=== PATIENT | male | born 1970 | race Caucasian/White ===

== ENCOUNTER → 2016-11-13 12:56 | Outpatient (CLI) | payer OTHER | END | disposition home or self-care (01) | LOC: D.US 12:56 | DX: N43.3 Hydrocele, unspecified (principal) ==

== ENCOUNTER 2020-03-14 00:34 | Observation (INO) | payer OTHER ==
[~2020-03-14] VITALS: Ht 175.3 cm; Wt 99.1 kg
[2020-03-14] MEDS ORDERED: HCTZ25 MG PO (00:51)
[2020-03-14] MEDS ORDERED: ULTRAM50 MG PO (00:52)
[2020-03-14] MEDS ORDERED: COLACE100 MG PO (00:52)
[2020-03-14] MEDS ORDERED: COZAAR50 MG PO (00:52)
[2020-03-14 01:54] LABS: BASOPHILS 0.3 % (0-2); EOSINOPHILS 2.3 % (0-7); HEMATOCRIT 45.3 % (42.0-54.0); HEMOGLOBIN 14.8 g/dL (13.5-17.5); IMMATURE GRANULOCYTES 0.1 % (0-5); MCH 26.4 pg (26.0-34.0); MCHC 32.7 g/dL (31.0-37.0); MCV 80.7 fL (80.0-100.0); MEAN PLATELET VOLUME 9.1 fL (7.4-10.4); MONOCYTES 12.1 % (2-11); NEUTROPHILS 45.2 % (40-80); PLATELET COUNT 336 10x3/uL (130-400); RBC 5.61 10x6/uL (4.20-6.10); RDW 13.9 % (11.5-14.5)
[2020-03-14 02:02] LABS: CALC OSMOLALITY 269 mosm/kg (275-300); CALCIUM 8.9 mg/dL (8.5-10.1); CARBON DIOXIDE 29.2 mmol/L (21.0-32.0); CHLORIDE - SERUM 98 mmol/L (98-107); CREATININE - SERUM 1.4 mg/dL (0.6-1.3); GLUCOSE 112 mg/dL (74-106); POTASSIUM - SERUM 3.7 mmol/L (3.5-5.1); SODIUM 134 mmol/L (136-145); UREA NITROGEN 14 mg/dL (7-18); eGFR NON AFRICAN AMERICAN 57 mL/min (90-120)
[2020-03-14 02:07] LABS: APTT 31.2 SECONDS (22.8-39.4); INR 0.99 (0.85-1.17); PROTIME 13.1 SECONDS (11.6-15.0)
[2020-03-14 02:16] LABS: ALBUMIN 3.8 g/dL (3.4-5.0); ALKALINE PHOSPHATASE 61 U/L (30-120); ALT (SGPT) 38 U/L (10-68); BILIRUBIN - TOTAL 0.51 mg/dL (0.2-1.3); CKMB 0.9 U/L (0.0-3.6); CREATINE KINASE 616 UL (21-232); MAGNESIUM - SERUM 1.9 mg/dL (1.8-2.4); PROTEIN - SERUM 8.1 g/dL (6.4-8.2); TROPONIN-I < 0.017 ng/mL (0.000-0.060)
[2020-03-14 03:50] VITALS: BMI 32.3
--- NOTE | 2020-03-14 07:15 | NUR ---
ASSESSMENT DONE. DENIES NEEDS
[2020-03-14 08:45] VITALS: Ht 175.3 cm; Wt 99.1 kg
[2020-03-14 09:14] LABS: CKMB 0.9 U/L (0.0-3.6); CREATINE KINASE 611 UL (21-232); TROPONIN-I < 0.017 ng/mL (0.000-0.060)
--- NOTE | 2020-03-14 09:22 | NUR ---
I have reviewed this patient and I concur with the Shift Assessment completed by the Licensed Practical Nurse today this shift.
[2020-03-14 09:25] VITALS: BP 105/72
[2020-03-14 11:20] LABS: T4 THYROXIN - FREE 1.4 ng/dL (0.76-1.46); THYROID STIMULATING HORMONE 1.24 uIU/mL (0.36-3.74)
[2020-03-14 14:12] LABS: CKMB 0.9 U/L (0.0-3.6); CREATINE KINASE 609 UL (21-232); TROPONIN-I < 0.017 ng/mL (0.000-0.060)
--- NOTE | 2020-03-14 17:27 | NUR ---
DC GIVEN TO PT
--- NOTE | 2020-03-14 18:36 | NUR ---
DC HOME PER PERSONAL CAR
== END 2020-03-14 18:36 | disposition home or self-care (01) ==
LOC: D.ER 00:34 → D.M2 02:04 → OBSVTIME 02:04 → D.M2 02:04
PROVIDERS: Family Medicine; ADMIT Family Medicine; ATTEND Family Medicine
DX: R07.9 Chest pain, unspecified (principal); I10 Essential (primary) hypertension; F17.200 Nicotine dependence, unspecified, uncomplicated